=== PATIENT | female | born 1965 | race American Indian/Alaskan Native ===

== ENCOUNTER 2020-01-16 11:51 | Emergency (ER) | payer MEDICAID ==
[2020-01-16 12:34] VITALS: BP 146/92
[2020-01-16] MEDS ORDERED: KETOROLAC 30 MG/1 ML INJ IM ONE (13:07)
--- NOTE | 2020-01-16 13:12 | Emergency Department Report ---
ED Fall HPI - General Chief Complaint: Fall Stated Complaint: BACK, NECK, AND KNEE PAIN Source: patient Mode of arrival: Ambulatory - History of Present Illness Initial Comments: 54-year-old -French female with a chronic history of neck and mid back pain presents to the emergency room for right knee pain and neck pain states that she had a fall several days ago and symptoms are worse with her knee injury. Patient denies any limitations to her knee. Patient states that she usually takes [place] and she is from [place] and that is where she usually gets her pain medication from. Patient states that she is relocated here with the last 2 weeks and is scheduled for appointment with the pain clinic on the of this month. Patient states that she has had surgery to her neck 2 years ago. Patient is taking nothing for her pain. MD Complaint: fall Onset/Timin -: days(s) Fall From: standing When Fall Occurred: # days [employer] (3) Place Fall Occurred: home Loss of Consciousness: none Prolonged Down Time?: no Symptoms Prior to Fall: none Location - Extremities: Right: Knee Severity: moderate Severity scale (0 -10): 8 Quality: aching Associated Symptoms: neck pain. denies: chest paint, shortness of breath, abdominal pain, hematuria, lightheaded, vertigo, confusion - Related Data Previous Rx's Medication Instructions Recorded Last Taken Type Ibuprofen [Motrin 600 MG tab] 600 mg PO Q8H PRN #21 tablet 01/16/20 Unknown Rx Allergies Allergy/AdvReac Type Severity Reaction Status Date / Time nalbuphine [From Nubain] Allergy Unknown Verified 01/16/20 12:34 ED Review of Systems ROS: Stated complaint: BACK, NECK, AND KNEE PAIN Other details as noted in HPI Comment: All other systems reviewed and negative ED Past Medical Hx - Past Medical History Previous Medical History?: Yes Hx Hypertension: Yes - Surgical History Past Surgical History?: Yes Hx Coronary Stent: Yes (1) - Social History Smoking Status: Never Smoker Substance Use Type: None - Medications Home Medications: Home Medications Medication Instructions Recorded Confirmed Last Taken Type Ibuprofen [Motrin 600 MG tab] 600 mg PO Q8H PRN #21 tablet 01/16/20 Unknown Rx ED Physical Exam - General Limitations: No Limitations General appearance: alert, in no apparent distress - Head Head exam: Present: atraumatic, normocephalic - Eye Eye exam: Present: normal appearance - ENT ENT exam: Present: mucous membranes moist - Neck Neck exam: Present: tenderness (Bilateral trapeze), other (Midline vertical surgical line well-healed) - Respiratory Respiratory exam: Absent: chest wall tenderness - Cardiovascular Cardiovascular Exam: Present: regular rate, normal rhythm. Absent: systolic murmur, diastolic murmur, rubs, gallop - Expanded Lower Extremity Exam Right Knee exam: Present: full ROM, tenderness. Absent: swelling Lower Leg exam: Present: normal inspection, full ROM Ankle exam: Present: normal inspection, full ROM Foot/Toe exam: Present: normal inspection, full ROM Neuro vascular tendon exam: Present: no vascular compromise Gait: Positive: observed and limited by pain ED Course Vital Signs 01/16/20 12:29 Temperature 98.0 F Pulse Rate 78 Respiratory 18 Rate Blood Pressure 146/92 O2 Sat by Pulse 100 Oximetry ED Medical Decision Making - Medical Decision Making 54-year-old -French female with a chronic history of neck and mid back pain presents to the emergency room for right knee pain and neck pain states that she had a fall several days ago and symptoms are worse with her knee injury. Patient denies any limitations to her knee. Patient states that she usually takes [place] and she is from [place] and that is where she usually gets her pain medication from. Patient states that she is relocated here with the last 2 weeks and is scheduled for appointment with the pain clinic on the of this month. Patient states that she has had surgery to her neck 2 years ago. Patient is taking nothing for her pain. X-ray of right knee and Toradol injection 30 mg IM Critical care attestation.: If time is entered above; I have spent that time in minutes in the direct care of this critically ill patient, excluding procedure time. ED Disposition Clinical Impression: Fall, Chronic neck pain, Right knee pain Is pt being admited?: No Does the pt Need Aspirin: No Condition: Stable Instructions: Acute Knee Pain, Adult, [id number] Prescriptions: Ibuprofen [Motrin 600 MG tab] 600 mg PO Q8H PRN #21 tablet PRN Reason: Pain Referrals: RAUL MARTE MD [Staff Physician] - 3-5 Days
--- NOTE | 2020-01-16 14:24 | XRay Report ---
RIGHT KNEE 2 VIEWS INDICATION: Right knee pain status post fall. COMPARISON: None. IMPRESSION: No acute osseous or soft tissue abnormality. Minimal medial compartment joint space n arrowing is identified. No joint effusion. Signer Name: Rah Dailey Jr, MD Signed: 01/16/2020 2:19 PM Workstation Name: [id number]
--- NOTE | 2020-01-16 14:25 | XRay Report ---
CERVICAL SPINE 4 VIEWS INDICATION: Fall with neck pain. COMPARISON: None. IMPRESSION: Posterior fusion changes from C2-T2 are evident, correlate with history. There is normal alignment on the lateral images. Moderate multilevel disc space narrowing is present throughout the thoracic spine. No acute osseous or soft tissue abnormality. Signer Name: Rah Dailey Jr, MD Signed: 01/16/2020 2:20 PM Workstation Name: [id number]
== END 2020-01-16 16:44 | disposition home or self-care (01) ==
LOC: ED 11:51
DX: M54.2 Cervicalgia (principal); M25.561 Pain in right knee; G89.29 Other chronic pain; I10 Essential (primary) hypertension; Z79.899 Other long term (current) drug therapy; Z95.5 Presence of coronary angioplasty implant and graft; Z88.8 Allergy status to other drugs, medicaments and biological substances; W18.30XA Fall on same level, unspecified, initial encounter; Y93.89 Activity, other specified; Y92.099 Unspecified place in other non-institutional residence as the place of occurrence of the external cause; Y99.8 Other external cause status
CPT/HCPCS: 72040; 73560; 96372; 99283; J1885

== ENCOUNTER 2020-05-17 19:55 | Emergency (ER) | payer MEDICAID ==
[2020-05-17] MEDS ORDERED: HYDROcodone/ACETAMINOPHEN 5-325 MG TAB PO ONE (20:56)
--- NOTE | 2020-05-17 21:45 | Cat Scan Report ---
CT thoracic spine wo con INDICATION / CLINICAL INFORMATION: fall, thoracic pain. TECHNIQUE: Axial, coronal and sagittal images All CT scans at this location are performed using CT dose reductio n for ALARA by means of automated exposure control. COMPARISON: None available. FINDINGS: The thoracic spine alignment appears normal. Mild endplate changes with small anterior disc osteophyt es at several levels. Facets are well aligned throughout. No loss of vertebral body height. No defini te soft tissue edema surrounding the thoracic spine. IMPRESSION: Discogenic degenerative change throughout the thoracic spine. No acute fracture is definitely seen. Signer Name: Kong Yadav MD Signed: 05/17/2020 9:41 PM Workstation Name: [id number]
--- NOTE | 2020-05-17 21:47 | Cat Scan Report ---
CT cervical spine wo con INDICATION / CLINICAL INFORMATION: fall, neck pain. TECHNIQUE: Axial, coronal and sagittal images All CT scans at this location are performed using CT dose reductio n for ALARA by means of automated exposure control. COMPARISON: None available. FINDINGS: There are disc osteophytes along the posterior longitudinal ligament with calcification throughout. N o subluxation is seen in the cervical spine. Postoperative changes seen throughout cervical spine the level of T2. No evidence for hardware failure. No prevertebral soft tissue swelling. Odontoid appear s intact. Occipital condyles appear normal. Retention cyst in right maxillary sinus. IMPRESSION: 1. [facility] like changes with ossification of posterior longitudinal ligament. No subluxation is seen. No prevertebral soft tissue swelling. 2. No acute fracture is seen. Signer Name: Kong Yadav MD Signed: 05/17/2020 9:43 PM Workstation Name: [id number]
--- NOTE | 2020-05-17 21:49 | Emergency Department Report ---
ED Fall HPI - General Chief Complaint: Neck Pain/Injury Stated Complaint: BACK PAIN Time Seen by Provider: 05/17/20 20:45 Source: patient Mode of arrival: Ambulatory Limitations: No Limitations - History of Present Illness Initial Comments: Patient is a 54-year-old female presents emergency room complaints of a fall that occurred 2 days ago. She states that she was outside in the grass. She states that she has issues with her right knee and is already seeing someone for this and has scheduled physical therapy. She states that occasionally the right knee will get off out on her. She states that the right knee gave out on her and she fell and landed on her back and her neck. She denies any knee pain. She states that she is only complaining of pain to her neck and her upper back. She denies any loss of consciousness, hitting her head, vision changes, vomiting, numbness, weakness, bowel or bladder incontinence. She states that she has a history of bulging disc and had surgery 3 years ago, she has a history of hypertension and CAD with stent. She has an allergy to Nubain, Tylenol 3, naproxen. She denies any steroid use, history of cancer, IV drug use. - Related Data Previous Rx's Medication Instructions Recorded Last Taken Type Ibuprofen [Motrin 600 MG tab] 600 mg PO Q8H PRN #21 tablet 01/16/20 Unknown Rx Acetaminophen [Tylenol] 650 mg PO Q8HR PRN #20 capsule 05/17/20 Unknown Rx Menthol/Camphor [Rainier [place] 1 applicatio TP BID #18 oint...g. 05/17/20 Unknown Rx Ointment] methOCARBAMOL [Robaxin TAB] 500 mg PO BID PRN #14 tab 05/17/20 Unknown Rx Allergies Allergy/AdvReac Type Severity Reaction Status Date / Time nalbuphine [From Nubain] Allergy Unknown Verified 01/16/20 12:34 ED Review of Systems ROS: Stated complaint: BACK PAIN Other details as noted in HPI Comment: All other systems reviewed and negative ED Past Medical Hx - Past Medical History Previous Medical History?: Yes Hx Hypertension: Yes Additional medical history: Chronic Back and Neck Pain - Surgical History Past Surgical History?: Yes Hx Coronary Stent: Yes (1) Additional Surgical History: Neck and spine surgery - Social History Smoking Status: Never Smoker - Medications Home Medications: Home Medications Medication Instructions Recorded Confirmed Last Taken Type Ibuprofen [Motrin 600 MG tab] 600 mg PO Q8H PRN #21 tablet 01/16/20 Unknown Rx Acetaminophen [Tylenol] 650 mg PO Q8HR PRN #20 capsule 05/17/20 Unknown Rx Menthol/Camphor [Rainier [place] 1 applicatio TP BID #18 oint...g. 05/17/20 Unknown Rx Ointment] methOCARBAMOL [Robaxin TAB] 500 mg PO BID PRN #14 tab 05/17/20 Unknown Rx ED Physical Exam - General Limitations: No Limitations General appearance: alert, in no apparent distress - Head Head exam: Present: atraumatic, normocephalic - Eye Eye exam: Present: normal appearance - ENT ENT exam: Present: mucous membranes moist - Neck Neck exam: Present: tenderness (midline and paraspinal C-spine ttp, there is a prior healed surgical scar vertically to the posterior neck), full ROM - Respiratory Respiratory exam: Present: normal lung sounds bilaterally. Absent: respiratory distress, wheezes, rales, rhonchi, stridor, chest wall tenderness, accessory muscle use, decreased breath sounds, prolonged expiratory - Cardiovascular Cardiovascular Exam: Present: regular rate, normal rhythm, normal heart sounds. Absent: systolic murmur, diastolic murmur, rubs, gallop - Back Exam Back exam: Present: normal inspection, full ROM, paraspinal tenderness (thoracic bilaterally), vertebral tenderness (thoracic) - Neurological Exam Neurological exam: Present: alert, oriented X3, CN II-XII intact, normal gait, other (5/5 muscle strength in the BUE/BLE, sensation intact throughout, no focal neuro deficits ). Absent: motor sensory deficit - Psychiatric Psychiatric exam: Present: normal affect, normal mood - Skin Skin exam: Present: warm, dry, intact ED Course Vital Signs 05/17/20 05/17/20 05/17/20 20:18 21:10 22:02 Temperature 98.1 F Pulse Rate 85 70 Respiratory 20 18 18 Rate Blood Pressure 155/101 Blood Pressure 141/99 [Left] O2 Sat by Pulse 95 95 Oximetry 05/17/20 22:05 Temperature Pulse Rate Respiratory 18 Rate Blood Pressure Blood Pressure [Left] O2 Sat by Pulse Oximetry ED Medical Decision Making - Radiology Data Radiology results: report reviewed Ordering Physician: CORY VIRAMONTES Date of Service: 05/17/20 Procedure(s): CT thoracic spine wo con Accession Number(s): [id number] cc: CORY VIRAMONTES CT thoracic spine wo con INDICATION / CLINICAL INFORMATION: fall, thoracic pain. TECHNIQUE: Axial, coronal and sagittal images All CT scans at this location are performed using CT dose reduction for ALARA by means of automated exposure control. COMPARISON: None available. FINDINGS: The thoracic spine alignment appears normal. Mild endplate changes with small anterior disc osteophytes at several levels. Facets are well aligned throughout. No loss of vertebral body height. No definite soft tissue edema surrounding the thoracic spine. IMPRESSION: Discogenic degenerative change throughout the thoracic spine. No acute fracture is definitely seen. Signer Name: Kong Field MD Signed: 05/17/2020 9:41 PM Workstation Name: [id number] Transcribed By: NILSON Dictated By: LEE ANN FIELD MD Electronically Authenticated By: LEE ANN FIELD MD Signed Date/Time: 05/17/202140 DD/ 37 TD/TT: Print Cancel Ordering Physician: CORY VIRAMONTES Date of Service: 05/17/20 Procedure(s): CT cervical spine wo con Accession Number(s): [id number] cc: CORY VIRAMONTES CT cervical spine wo con INDICATION / CLINICAL INFORMATION: fall, neck pain. TECHNIQUE: Axial, coronal and sagittal images All CT scans at this location are performed using CT dose reduction for ALARA by means of automated exposure control. COMPARISON: None available. FINDINGS: There are disc osteophytes along the posterior longitudinal ligament with calcification throughout. No subluxation is seen in the cervical spine. Postoperative changes seen th roughout cervical spine the level of T2. No evidence for hardware failure. No prevertebral soft tissue swelling. Odontoid appears intact. Occipital condyles appear normal. Retention cyst in right ma xillary sinus. IMPRESSION: 1. [facility] like changes with ossification of posterior longitudinal ligament. No subluxation is seen. No prevertebral soft tissue swelling. 2. No acute fracture is seen. Signer Name: Kong Field MD Signed: 05/17/2020 9:43 PM Workstation Name: [id number] Transcribed By: NILSON Dictated By: LEE ANN FIELD MD Electronically Authenticated By: LEE ANN FIELD MD Signed Date/Time: 05/17/202142 DD/ 40 TD/TT: Print Cancel - Medical Decision Making Patient is a 54-year-old female presents emergency room complaints of a fall that occurred 2 days ago. She states that she was outside in the grass. She states that she has issues with her right knee and is already seeing someone for this and has scheduled physical therapy. She states that occasionally the right knee will get off out on her. She states that the right knee gave out on her and she fell and landed on her back and her neck. She denies any knee pain. She states that she is only complaining of pain to her neck and her upper back. She denies any loss of consciousness, hitting her head, vision changes, vomiting, numbness, weakness, bowel or bladder incontinence. She states that she has a history of bulging disc and had surgery 3 years ago, she has a history of hypertension and CAD with stent. She has an allergy to Nubain, Tylenol 3, naproxen. She denies any steroid use, history of cancer, IV drug use. Vitals are stable. On exam: Midline and paraspinal C-spine and T-spine tenderness palpation, prior healed surgical incision, no focal neuro deficit. CT thoracic spine: Discogenic degenerative change throughout the thoracic spine. No acute fracture is definitely seen. CT cervical spine: 1. [facility] like changes with ossification of posterior longitudinal ligament. No subluxation is seen. No pre vertebral soft tissue swelling. 2. No acute fracture is seen. Discussed all results with patient. Patient given pain medication while in the emergency department as she did not drive and symptoms improved. Patient will be referred to orthopedic/neurosurgery. Patient given prescription for Tylenol, Robaxin, Rainier balm ointment. Advised patient Please use medication as prescribed. Do not drive or operate machinery while taking muscle relaxer Robaxin. May use ice pack, heating pad, rest, Epsom salt bath. Follow-up with a orthopedic doctor/spine doctor. Return to emergency room for new or worsening symptoms. - Differential Diagnosis Strain, sprain, fracture, dislocation, DDD, bulging disc, spondylolisthesis Critical care attestation.: If time is entered above; I have spent that time in minutes in the direct care of this critically ill patient, excluding procedure time. ED Disposition Clinical Impression: Neck pain, Upper back pain Fall Qualifiers: Encounter type: initial encounter Qualified Code(s): W19.XXXA - Unspecified fall, initial encounter DDD (degenerative disc disease) Qualifiers: Spinal region: cervicothoracic Qualified Code(s): M50.33 - Other cervical disc degeneration, cervicothoracic region Disposition: TO HOME OR SELFCARE Is pt being admited?: No Does the pt Need Aspirin: No Condition: Stable Instructions: Degenerative Disk Disease Additional Instructions: Please use medication as prescribed. Do not drive or operate machinery while taking muscle relaxer Robaxin. May use ice pack, heating pad, rest, Epsom salt bath. Follow-up with a orthopedic doctor/spine doctor. Return to emergency room for new or worsening symptoms. Prescriptions: methOCARBAMOL [Robaxin TAB] 500 mg PO BID PRN #14 tab PRN Reason: pain Menthol/Camphor [Rainier [place] Ointment] 1 applicatio TP BID #18 oint...g. Acetaminophen [Tylenol] 650 mg PO Q8HR PRN #20 capsule PRN Reason: pain Referrals: [facility] [Provider Group] - 3-5 Days LETITIA WANG II, MD [Staff Physician] - 3-5 Days Time of Disposition: 21:57 Print Language: ARGENTINE
[2020-05-17 22:03] VITALS: BP 141/99
== END 2020-05-17 22:05 | disposition home or self-care (01) ==
LOC: ED 19:55
DX: M51.34 Other intervertebral disc degeneration, thoracic region (principal); M54.2 Cervicalgia; I10 Essential (primary) hypertension; Z98.890 Other specified postprocedural states; Z79.1 Long term (current) use of non-steroidal anti-inflammatories (NSAID); Z79.899 Other long term (current) drug therapy; Z88.8 Allergy status to other drugs, medicaments and biological substances; W19.XXXA Unspecified fall, initial encounter; Y93.89 Activity, other specified; Y92.89 Other specified places as the place of occurrence of the external cause; Y99.8 Other external cause status
CPT/HCPCS: 72125; 72128

== ENCOUNTER 2020-05-25 12:07 | Emergency (ER) | payer MEDICAID ==
[2020-05-25 12:24] VITALS: BP 134/95
--- NOTE | 2020-05-25 12:24 | Event Note ---
ED Screening Note Date of service: 05/25/20 Time: 12:23 ED Screening Note: Pt c/o right knee pain x 1 month, suddenly worsening today injured 1 month ago via a fall [facility]-states referred here today for pain control This initial assessment/diagnostic orders/clinical plan/treatment(s) is/are subject to change based on patients health status, clinical progression and re- assessment by fellow clinical providers in the ED. Further treatment and workup at subsequent clinical providers discretion. Patient/guardian urged not to elope from the ED as their condition may be serious if not clinically assessed and managed. Initial orders include:
[2020-05-25] MEDS ORDERED: KETOROLAC 30 MG/1 ML INJ IM ONE (12:56)
--- NOTE | 2020-05-25 13:00 | Emergency Department Report ---
HPI - General Chief Complaint: Extremity Injury, Lower Time Seen by Provider: 05/25/20 12:23 - HPI HPI: This is a 54-year-old female presents to the emergency department with a complaint of acute on chronic right knee pain. Overall she says that the pain has been going on for the past month. It started after having a fall. She has been following with an orthopedic physician, Dr. Jose Vo, and. The patient this orthopedist says that her right knee pain is secondary to osteoarthritis. The patient also says that she was told that if her pain starts acting up that she should go to the emergency department. Patient has a past medical history of hypertension, coronary artery disease with a cardiac stent in place. She has a history of chronic neck and back pains for which she is also had orthopedic spinal surgery in the past. The patient was seen here about 1 week ago with a complaint of neck and back pain secondary to a fall. The [employer] prescription monitoring system shows that the patient has filled 2 different prescriptions for tramadol over the past 3 weeks. She says that the "pain medication he gave me is not working." ED Past Medical Hx - Past Medical History Previous Medical History?: Yes Hx Hypertension: Yes Additional medical history: Chronic Back and Neck Pain - Surgical History Past Surgical History?: Yes Hx Coronary Stent: Yes (1) Additional Surgical History: Neck and spine surgery - Social History Smoking Status: Never Smoker Substance Use Type: None - Medications Home Medications: Home Medications Medication Instructions Recorded Confirmed Last Taken Type Acetaminophen [Tylenol] 650 mg PO Q8HR PRN #20 capsule 05/17/20 Unknown Rx Menthol/Camphor [[place]las [place] 1 applicatio TP BID #18 oint...g. 05/17/20 Unknown Rx Ointment] methOCARBAMOL [Robaxin TAB] 500 mg PO BID PRN #14 tab 05/17/20 Unknown Rx Ibuprofen [Motrin 600 MG tab] 600 mg PO Q8H PRN #21 tablet 05/25/20 Unknown Rx ED Review of Systems ROS: Stated complaint: KNEE PAIN Other details as noted in HPI Comment: All other systems reviewed and negative Constitutional: denies: chills, fever Eyes: denies: eye pain, vision change ENT: denies: ear pain, throat pain Respiratory: denies: cough, shortness of breath Cardiovascular: denies: chest pain, palpitations Gastrointestinal: denies: abdominal pain, vomiting Genitourinary: denies: dysuria, discharge Musculoskeletal: arthralgia. denies: back pain, joint swelling Skin: denies: rash, lesions Neurological: denies: numbness, paresthesias Physical Exam - Physical Exam Vital Signs: Vital Signs 05/25/20 12:20 Temperature 98.3 F Pulse Rate 82 Respiratory 18 Rate Blood Pressure 134/95 O2 Sat by Pulse 97 Oximetry Physical Exam: GENERAL: The patient is well-developed well-nourished. HENT: Normocephalic. Atraumatic. Patient has moist mucous membranes. EYES: Extraocular motions are intact. NECK: Supple. Trachea is midline. CHEST/LUNGS: Clear to auscultation. There is no respiratory distress noted. HEART/CARDIOVASCULAR: Regular. There is no tachycardia. There is no murmur. ABDOMEN: Abdomen is soft, nontender. Patient has normal bowel sounds. SKIN: Skin is warm and dry. NEURO: The patient is awake, alert, and oriented. The patient is cooperative. Normal speech. MUSCULOSKELETAL: There is tenderness to palpation to the anterior right knee. Negative anterior and posterior drawer test and there is no laxity with valgus or varus stress of the affected right knee. ED Course Vital Signs 05/25/20 12:20 Temperature 98.3 F Pulse Rate 82 Respiratory 18 Rate Blood Pressure 134/95 O2 Sat by Pulse 97 Oximetry ED Medical Decision Making - Radiology Data Radiology results: image reviewed interpreted by me: X-ray of the right knee shows degenerative changes, but there is no fracture, dislocation, signs of osteomyelitis. - Medical Decision Making This patient presents to the emergency department with acute on chronic right knee pain. She has been told that it is due to osteoarthritis. X-ray confirms this as there are some degenerative changes, but there is no fracture, dislocation, signs of overt effusion. The knee does not have any erythema, skin color changes, warmth, fluctuance. She is neurovascularly intact. Patient was given a shot of Toradol with some improvement of her discomfort. She will be placed in a knee immobilizer and has good outpatient follow-up with an orthopedist. Critical Care Time: No Critical care attestation.: If time is entered above; I have spent that time in minutes in the direct care of this critically ill patient, excluding procedure time. ED Disposition Clinical Impression: Osteoarthritis of right knee Qualifiers: Osteoarthritis type: unspecified Qualified Code(s): M17.11 - Unilateral primary osteoarthritis, right knee Right knee pain Qualifiers: Chronicity: acute Qualified Code(s): M25.561 - Pain in right knee Disposition: - TO HOME OR SELFCARE Is pt being admited?: No Condition: Stable Instructions: Acute Knee Pain, Adult, Chronic Knee Pain, Adult Additional Instructions: Please follow-up with your orthopedist in the next few days. Prescriptions: Ibuprofen [Motrin 600 MG tab] 600 mg PO Q8H PRN #21 tablet PRN Reason: Pain Referrals: Orthopedist, Your [Other] - 3-5 Days PRIMARY CARE, [Primary Care Provider] - 3-5 Days Time of Disposition: 14:08
--- NOTE | 2020-05-25 13:40 | XRay Report ---
RIGHT KNEE 3 VIEWS 1258 INDICATION: right knee pain COMPARISON: 01/16/2020 FINDINGS: No obvious joint effusion is seen. No fractures or dislocations are noted. Degenerative curt nges are again seen most affecting the patellofemoral and medial compartments with mild medial joint space narrowing. Signer Name: Erasmo Jasso MD Signed: 05/25/2020 1:35 PM Workstation Name: [id number]
== END 2020-05-25 15:21 | disposition home or self-care (01) ==
LOC: ED 12:07
DX: M17.11 Unilateral primary osteoarthritis, right knee (principal); I10 Essential (primary) hypertension; Z98.890 Other specified postprocedural states; Z79.1 Long term (current) use of non-steroidal anti-inflammatories (NSAID); Z79.899 Other long term (current) drug therapy; Z88.8 Allergy status to other drugs, medicaments and biological substances
CPT/HCPCS: 73562; 96372; 99283; J1885

== ENCOUNTER 2020-06-26 21:54 | Emergency (ER) | payer MEDICAID ==
[2020-06-27 00:37] VITALS: BP 135/96
--- NOTE | 2020-06-27 02:11 | Emergency Department Report ---
ED General Adult HPI - General Chief complaint: Extremity Injury, Lower Stated complaint: KNEE PAIN Time Seen by Provider: 06/27/20 01:20 Source: patient Mode of arrival: Wheelchair Limitations: No Limitations - History of Present Illness Initial comments: Patient is a 54-year-old -[place]enian female with a history of right knee pain. Who presents for knee pain today 06/23 patient denies fall injury or trauma. Patient states pain is exacerbated by movement and weightbearing. Pain is relieved by nothing tried. This is a recurrent problem. - Related Data Previous Rx's Medication Instructions Recorded Last Taken Type Acetaminophen [Tylenol] 650 mg PO Q8HR PRN #20 capsule 05/17/20 Unknown Rx Menthol/Camphor [[place]idelity 1 applicatio TP BID #18 oint...g. 05/17/20 Unknown Rx Ointment] methOCARBAMOL [Robaxin TAB] 500 mg PO BID PRN #14 tab 05/17/20 Unknown Rx Ibuprofen [Motrin 600 MG tab] 600 mg PO Q8H PRN #21 tablet 05/25/20 Unknown Rx Capsaicin 0.075% [Zostrix Hp 1 applicatio TP TID PRN #1 tube 06/27/20 Unknown Rx 0.075%] predniSONE [Deltasone] 40 mg PO QDAY 5 Days #10 tab 06/27/20 Unknown Rx traMADoL [Ultram] 50 mg PO Q6HR PRN #12 tablet 06/27/20 Unknown Rx Allergies Allergy/AdvReac Type Severity Reaction Status Date / Time nalbuphine [From Nubain] Allergy Unknown Verified 01/16/20 12:34 ED Review of Systems ROS: Stated complaint: KNEE PAIN Other details as noted in HPI Constitutional: denies: chills, fever Eyes: denies: eye pain, eye discharge, vision change ENT: denies: ear pain, throat pain Respiratory: denies: cough, shortness of breath, wheezing Cardiovascular: denies: chest pain, palpitations Endocrine: no symptoms reported Gastrointestinal: denies: abdominal pain, nausea, vomiting, diarrhea Genitourinary: denies: urgency, dysuria, discharge Musculoskeletal: arthralgia, myalgia, other (knee pain ). denies: back pain, joint swelling Skin: denies: rash, lesions Neurological: denies: headache, weakness, paresthesias Psychiatric: denies: anxiety, depression Hematological/Lymphatic: denies: easy bleeding, easy bruising ED Past Medical Hx - Past Medical History Previous Medical History?: Yes Hx Hypertension: Yes Additional medical history: Chronic Back and Neck Pain - Surgical History Past Surgical History?: Yes Hx Coronary Stent: Yes (1) Additional Surgical History: Neck and spine surgery - Social History Smoking Status: Never Smoker Substance Use Type: None - Medications Home Medications: Home Medications Medication Instructions Recorded Confirmed Last Taken Type Acetaminophen [Tylenol] 650 mg PO Q8HR PRN #20 capsule 05/17/20 Unknown Rx Menthol/Camphor [[place] Fidelity 1 applicatio TP BID #18 oint...g. 05/17/20 Unknown Rx Ointment] methOCARBAMOL [Robaxin TAB] 500 mg PO BID PRN #14 tab 05/17/20 Unknown Rx Ibuprofen [Motrin 600 MG tab] 600 mg PO Q8H PRN #21 tablet 05/25/20 Unknown Rx Capsaicin 0.075% [Zostrix Hp 1 applicatio TP TID PRN #1 tube 06/27/20 Unknown Rx 0.075%] predniSONE [Deltasone] 40 mg PO QDAY 5 Days #10 tab 06/27/20 Unknown Rx traMADoL [Ultram] 50 mg PO Q6HR PRN #12 tablet 06/27/20 Unknown Rx ED Physical Exam - General Limitations: No Limitations General appearance: alert, in no apparent distress - Head Head exam: Present: atraumatic, normocephalic - Eye Eye exam: Present: normal appearance, EOMI Pupils: Present: normal accommodation - ENT ENT exam: Present: mucous membranes moist - Neck Neck exam: Present: normal inspection - Respiratory Respiratory exam: Present: wheezes - Cardiovascular Cardiovascular Exam: Present: regular rate, normal rhythm. Absent: systolic murmur, diastolic murmur, rubs, gallop - GI/Abdominal GI/Abdominal exam: Present: soft, normal bowel sounds - Rectal Rectal exam: Present: deferred - Extremities Exam Extremities exam: Present: normal inspection, full ROM, tenderness, joint swelling - Expanded Lower Extremity Exam Right Knee exam: Present: full ROM, tenderness, pain w/ pronation/supination, full knee extension. Absent: swelling, abrasion, laceration, ecchymosis, deformity, crepidus, posterior draw sign, pain/laxity with valgus, pain/laxity with varus Lower Leg exam: Present: full ROM. Absent: tenderness, swelling Ankle exam: Present: normal inspection, full ROM Foot/Toe exam: Present: normal inspection. Absent: tenderness Neuro vascular tendon exam: Present: no vascular compromise. Absent: pulse deficit, motor deficit, tendon deficit - Back Exam Back exam: Present: normal inspection, full ROM. Absent: tenderness, vertebral tenderness - Neurological Exam Neurological exam: Present: alert, oriented X3, CN II-XII intact, normal gait, reflexes normal. Absent: motor sensory deficit - Psychiatric Psychiatric exam: Present: normal affect, normal mood - Skin Skin exam: Present: warm, dry, intact, normal color. Absent: rash ED Course Vital Signs 06/26/20 23:00 Temperature 99.2 F Pulse Rate 89 Respiratory 18 Rate Blood Pressure 135/96 O2 Sat by Pulse 99 Oximetry ED Medical Decision Making - Medical Decision Making This is acute on chronic right knee pain. Plan DC to home with NSAIDs, follow-up with PCP in 2 to 3 days. Return to emergency should symptoms worsen. Critical care attestation.: If time is entered above; I have spent that time in minutes in the direct care of this critically ill patient, excluding procedure time. ED Disposition Clinical Impression: Arthritis of knee, right Knee pain Qualifiers: Chronicity: acute Laterality: right Qualified Code(s): M25.561 - Pain in right knee Disposition: DC-01 TO HOME OR SELFCARE Is pt being admited?: No Does the pt Need Aspirin: No Condition: Stable Instructions: Acute Knee Pain, Adult Additional Instructions: Take medications as prescribed, follow up with your primary doctor in next2-3 days, knee exercise. Prescriptions: predniSONE [Deltasone] 40 mg PO QDAY 5 Days #10 tab traMADoL [Ultram] 50 mg PO Q6HR PRN #12 tablet PRN Reason: Pain Capsaicin 0.075% [Zostrix Hp 0.075%] 1 applicatio TP TID PRN #1 tube PRN Reason: Pain Referrals: RAUL MARTE MD [Staff Physician] - 3-5 Days Forms: Work/School Release Form(ED) Time of Disposition: 02:48
[2020-06-27] MEDS ORDERED: dexAMETHasone 20 MG/5 ML VIAL IM ONE (02:31)
[2020-06-27] MEDS ORDERED: dexAMETHasone 20 MG/5 ML VIAL IV ONE (02:31)
[2020-06-27] MEDS ORDERED: HYDROcodone/ACETAMINOPHEN 5-325 MG TAB PO ONE (02:31)
== END 2020-06-27 03:00 | disposition home or self-care (01) ==
LOC: ED 21:54
DX: M17.11 Unilateral primary osteoarthritis, right knee (principal); I10 Essential (primary) hypertension; Z98.890 Other specified postprocedural states; Z79.1 Long term (current) use of non-steroidal anti-inflammatories (NSAID); Z79.899 Other long term (current) drug therapy; Z88.8 Allergy status to other drugs, medicaments and biological substances
CPT/HCPCS: 96372; 99282; J1100

== ENCOUNTER 2020-07-03 02:36 | Emergency (ER) | payer MEDICAID ==
[2020-07-03] MEDS ORDERED: ASPIRIN 325 MG TAB PO ONE (02:53)
--- NOTE | 2020-07-03 03:28 | XRay Report ---
CHEST 2 VIEWS INDICATION / CLINICAL INFORMATION: chest pain. COMPARISON: None available. FINDINGS: SUPPORT DEVICES: None. HEART / MEDIASTINUM: No significant abnormality. LUNGS / PLEURA: Clear lungs. No significant pleural effusion. No pneumothorax. ADDITIONAL FINDINGS: No significant additional findings. IMPRESSION: 1. No acute abnormality of the chest. Signer Name: Dao Figueroa MD Signed: 07/03/2020 3:23 AM Workstation Name: [id number]
[2020-07-03 04:01] LABS: Basophils % (Auto) 0.1 % (0.0-1.8); Eosinophils % (Auto) 0.2 % (0.0-4.3); Hematocrit 34.9 % (30.3-42.9); Hemoglobin 11.9 gm/dl (10.1-14.3); Lymphocytes # (Auto) 0.9 K/mm3 (1.2-5.4); Lymphocytes % (Auto) 10.8 % (13.4-35.0); Mean Corpuscular HGB Conc 34 % (30-34); Mean Corpuscular Volume 84 fl (79-97); Monocytes # (Auto) 0.2 K/mm3 (0.0-0.8); Monocytes % (Auto) 2.7 % (0.0-7.3); Platelet Count 308 K/mm3 (140-440); Red Blood Count 4.18 M/mm3 (3.65-5.03); Red Cell Distribution Width 15.1 % (13.2-15.2)
[2020-07-03 04:27] LABS: Alanine Aminotransferase 23 units/L (7-56); Albumin 4.5 g/dL (3.9-5); BUN/Creatinine Ratio 28; Blood Urea Nitrogen 25 mg/dL (7-17); Hemolysis Index 14
--- NOTE | 2020-07-03 10:56 | Electrocardiograph Report ---
[facility] Test Date: 2020-07-03 Test Time: 02:40:07 Pat Name: YANET CARDOZO Department: Room: Gender: F Nurse College: [employer] : 1965 Requested By: ED DOC Order Number: [id number] Reading MD: Stefan Hyman Measurements Intervals [place] Rate: 88 P: 42 MS: 129 QRS: 65 QRSD: 83 T: 34 QT: 389 QTc: 472 Interpretive Statements Sinus rhythm Consider left ventricular hypertrophy No previous ECG available for comparison Electronically Signed On 07-03-2020 10:56:33 EDT by Stefan Hyman
[2020-07-03] MEDS ORDERED: carvediloL 3.125 MG TAB PO ONE (14:05)
[2020-07-03] MEDS ORDERED: LISINOPRIL 20 MG TAB PO ONE (14:05)
[2020-07-03] MEDS ORDERED: ALUM-MAG HYDROXIDE-SIMETHICONE 200-200-20MG/5ML ORAL LIQD 30 ML PO ONE (14:05)
--- NOTE | 2020-07-03 14:10 | Emergency Department Report ---
ED Chest Pain HPI - General Chief Complaint: Chest Pain Stated Complaint: CHEST PAIN Time Seen by Provider: 07/03/20 12:55 Source: family Mode of arrival: Ambulatory Limitations: No Limitations - History of Present Illness Initial Comments: Chief complaint: "I just have gas in my chest." HPI: This is a 54-year-old female with history of hypertension who presents with chest pain for the past day. Pain radiates to the left arm. She has nausea and generalized weakness. Pain feels like gas. She has had the pain persistently for several hours. Pain spontaneously resolved without treatment. No association with eating or movement. No association with exertion or inspiration. MD Complaint: chest pain -: Gradual, days(s) (1 days) Pain Location: left chest Pain Radiation: none Severity: mild Quality: pressure Consistency: now resolved Improves With: nothing Worsens With: nothing re: nausea Treatments Prior to Arrival: none - Related Data Home Medications Medication Instructions Recorded Confirmed Last Taken Cyclobenzaprine HCl [Flexeril 5 MG 5 mg PO BID 07/03/20 07/03/20 Unknown TAB] Meloxicam [Mobic] 7.5 mg PO QDAY 07/03/20 07/03/20 Unknown Spironolactone [Aldactone] 25 mg PO QDAY 07/03/20 07/03/20 Unknown carvediloL [Coreg] 6.25 mg PO BID 07/03/20 07/03/20 Unknown lisinopriL [Lisinopril] 20 mg PO QDAY 07/03/20 07/03/20 Unknown Previous Rx's Medication Instructions Recorded Last Taken Type Famotidine [Pepcid] 20 mg PO BID 30 Days #60 tablet 07/03/20 Unknown Rx Allergies Allergy/AdvReac Type Severity Reaction Status Date / Time nalbuphine [From Nubain] Allergy Unknown Verified 07/03/20 10:38 Heart Score - HEART Score History: Slightly suspicious EKG: Normal Age: 45-65 Risk factors: 1-2 risk factors Troponin: < normal limit HEART Score: 2 - EKG Read Time Time EKG Completed: 02:40 EKG Read Time: 02:42 ED Review of Systems ROS: Stated complaint: CHEST PAIN Other details as noted in HPI Comment: All other systems reviewed and negative Constitutional: denies: fever, malaise Respiratory: denies: cough, shortness of breath Cardiovascular: chest pain Gastrointestinal: nausea ED Past Medical Hx - Past Medical History Previous Medical History?: Yes Hx Hypertension: Yes Additional medical history: Chronic Back and Neck Pain - Surgical History Past Surgical History?: Yes Hx Coronary Stent: Yes (1) Additional Surgical History: Neck and spine surgery - Social History Smoking Status: Never Smoker Substance Use Type: None - Medications Home Medications: Home Medications Medication Instructions Recorded Confirmed Last Taken Type Cyclobenzaprine HCl [Flexeril 5 MG 5 mg PO BID 07/03/20 07/03/20 Unknown History TAB] Famotidine [Pepcid] 20 mg PO BID 30 Days #60 tablet 07/03/20 Unknown Rx Meloxicam [Mobic] 7.5 mg PO QDAY 07/03/20 07/03/20 Unknown History Spironolactone [Aldactone] 25 mg PO QDAY 07/03/20 07/03/20 Unknown History carvediloL [Coreg] 6.25 mg PO BID 07/03/20 07/03/20 Unknown History lisinopriL [Lisinopril] 20 mg PO QDAY 07/03/20 07/03/20 Unknown History ED Physical Exam - General Limitations: No Limitations General appearance: alert, in no apparent distress - Head Head exam: Present: atraumatic, normocephalic - Eye Eye exam: Present: normal appearance - ENT ENT exam: Present: mucous membranes moist - Neck Neck exam: Present: normal inspection, full ROM - Respiratory Respiratory exam: Present: normal lung sounds bilaterally. Absent: respiratory distress, wheezes, rales, rhonchi - Cardiovascular Cardiovascular Exam: Present: regular rate, normal rhythm, normal heart sounds. Absent: systolic murmur, diastolic murmur, rubs, gallop - GI/Abdominal GI/Abdominal exam: Present: soft, normal bowel sounds. Absent: distended, tenderness, guarding, rebound - Extremities Exam Extremities exam: Present: normal inspection - Neurological Exam Neurological exam: Present: alert, oriented X3 - Psychiatric Psychiatric exam: Present: normal affect, normal mood - Skin Skin exam: Present: warm, dry, intact, normal color. Absent: rash ED Course Vital Signs 07/03/20 07/03/20 07/03/20 02:47 10:40 10:45 Temperature 98.6 F 98 F Pulse Rate 92 H 83 83 Respiratory 18 22 17 Rate Blood Pressure 184/118 172/120 Blood Pressure 189/126 [Left] O2 Sat by Pulse 99 100 100 Oximetry 07/03/20 07/03/20 07/03/20 11:01 11:15 11:31 Temperature Pulse Rate 80 80 79 Respiratory 14 14 15 Rate Blood Pressure 177/117 183/118 177/113 Blood Pressure [Left] O2 Sat by Pulse 99 100 100 Oximetry 07/03/20 07/03/20 12:01 13:01 Temperature Pulse Rate 79 79 Respiratory 15 15 Rate Blood Pressure 169/106 158/111 Blood Pressure [Left] O2 Sat by Pulse 100 100 Oximetry ED Medical Decision Making - Lab Data Result diagrams: 07/03/20 03:29 07/03/20 03:29 Laboratory Results - last 24 hr 07/03/20 07/03/20 07/03/20 03:29 03:29 05:55 WBC 8.6 RBC 4.18 Hgb 11.9 Hct 34.9 MCV 84 MCH 29 MCHC 34 RDW 15.1 Plt Count 308 Lymph % (Auto) 10.8 L Dukes % (Auto) 2.7 Eos % (Auto) 0.2 Baso % (Auto) 0.1 Lymph # (Auto) 0.9 L Dukes # (Auto) 0.2 Eos # (Auto) 0.0 Baso # (Auto) 0.0 Seg Neutrophils % 86.2 H Seg Neutrophils # 7.4 Sodium 134 L Potassium 4.8 Chloride 99.6 Carbon Dioxide 21 L Anion Gap 18 BUN 25 H Creatinine 0.9 Estimated GFR > 60 BUN/Creatinine Ratio 28 Glucose 142 H Calcium 9.0 Total Bilirubin 1.20 AST 24 ALT 23 Alkaline Phosphatase 45 Troponin T < 0.010 < 0.010 Total Protein 6.6 Albumin 4.5 Albumin/Globulin Ratio 2.1 07/03/20 08:43 WBC RBC Hgb Hct MCV MCH MCHC RDW Plt Count Lymph % (Auto) Dukes % (Auto) Eos % (Auto) Baso % (Auto) Lymph # (Auto) Dukes # (Auto) Eos # (Auto) Baso # (Auto) Seg Neutrophils % Seg Neutrophils # Sodium Potassium Chloride Carbon Dioxide Anion Gap BUN Creatinine Estimated GFR BUN/Creatinine Ratio Glucose Calcium Total Bilirubin AST ALT Alkaline Phosphatase Troponin T < 0.010 Total Protein Albumin Albumin/Globulin Ratio - EKG Data -: EKG Interpreted by La EKG shows normal: sinus rhythm, axis, intervals, QRS complexes, ST-T waves Rate: normal - Radiology Data Radiology results: report reviewed Chest radiograph 2 views: No acute abnormality of the chest according to radiology impression - Medical Decision Making 1. Chest pain: Suspect GERD, no indication of life-threatening condition such as pulmonary embolism PERC negative, ACS ruled out with normal EKG and 3 serial negative troponin values. Chest radiograph unremarkable. Patient referred to outpatient carbonizer. Prescribed famotidine. 2. Asymptomatic hypertensive urgency: Patient has not taken her antihypertensive medications. She was given her home medications. Critical care attestation.: If time is entered above; I have spent that time in minutes in the direct care of this critically ill patient, excluding procedure time. ED Disposition Clinical Impression: GERD (gastroesophageal reflux disease), Hypertensive urgency Disposition: - TO HOME OR SELFCARE Is pt being admited?: No Does the pt Need Aspirin: No Condition: Stable Instructions: Food Choices for Gastroesophageal Reflux Disease, Adult Prescriptions: Famotidine [Pepcid] 20 mg PO BID 30 Days #60 tablet Referrals: HITESH KEBEDE MD [Staff Physician] - 3-5 Days LIZ THOMSON MD [Staff Physician] - 3-5 Days
[2020-07-03 14:36] VITALS: BP 172/112
== END 2020-07-03 14:38 | disposition home or self-care (01) ==
LOC: ED 02:36
DX: K21.9 Gastro-esophageal reflux disease without esophagitis (principal); I16.0 Hypertensive urgency; Z98.890 Other specified postprocedural states; Z79.899 Other long term (current) drug therapy; Z88.8 Allergy status to other drugs, medicaments and biological substances
CPT/HCPCS: 36415; 71046; 80053; 84484; 85025; 93005